=== PATIENT | female | born 1950 | race Caucasian/White ===

== ENCOUNTER → 2017-12-06 | Outpatient (CLI) | payer MEDICARE, BC | END | disposition home or self-care (01) | LOC: LABWHC1 14:38 | PROVIDERS: ATTEND Internal Medicine Endocrinology, Diabetes & Metabolism | DX: E03.8 Other specified hypothyroidism (principal) | CPT/HCPCS: 36415; 84443 ==

== ENCOUNTER → 2018-01-26 | Outpatient (CLI) | payer MEDICARE, BC ==
--- NOTE | 2018-01-26 14:18 | BD ---
EXAMINATION TYPE: Axial Bone Density DATE OF EXAM: 01/26/2018 COMPARISON: NONE CLINICAL HISTORY: 67 YR OLD FEMALE....1CD-10 CODE: Z13.820 SCREENING FOR OSTEOPOROSIS Height: 59.2 Weight: 171.6 FRAX RISK QUESTIONS: Glucocorticoids (More than 3mos): YES (Ex: prednisone, prednisolone, methylprednisolone, dexamethasone, and hydrocortisone). RISK FACTORS HISTORY OF: FRACTURES ONLY YOUNG ADULT Active: YES Diet low in dairy products/other sources of calcium: NO Postmenopausal woman: YES AT AGE 57 MEDICATIONS: Prednisone or other steroids: STEROID SHOTS INTO BACK, ASTHMA INHALERS, How Long: ON AND OFF FOR YRS Thyroid Medications: YES, SYNTHROID, FOR ABOUT 5YRS Additional Medications: VIT D AND MULTIVITAMIN WITH CALCIUM, REFLUX MEDS, MOBIC Additional History: ASTHMA AND ALLERGIES EXAM MEASUREMENTS: Bone mineral densitometry was performed using the [employer] System. Bone mineral density as measured about the Lumbar spine is: ----- L1-L4(G/cm2): 1.497 T Score Values are as follows: ----- L1: 2.6 ----- L2: 2.2 ----- L3: 2.2 ----- L4: 3.4 ----- L1-L4: 2.4 Bone mineral density FIRST BONE DENSITY......BASELINE STUDY Bone mineral density about the R hip (g/cm2): 1.026 Bone mineral density about the L hip (g/cm2): 1.009 T Score values are as follows: -----R Neck: -1.0 -----L Neck: -1.1 -----R Total: 0.1 -----L Total: 0.0 Bone mineral density BASELINE STUDY FRAX%s: THERE IS A 12.1% CHANCE OF A MAJOR OSTEOPOROTIC FX AND A 1.0% FOR HIP FX....PROBABILITY O F FX IN 10 YRS TIME IMPRESSION: Osteopenia (T Score between -2.5 and -1). There is slightly increased risk of fracture and the patient may be considered for treatment. Re-Screen 2-5 years. NOTE: T-SCORE=SD OF THE YOUNG ADULT MEAN.
--- NOTE | 2018-01-30 07:06 | MM ---
Reason for exam: screening (asymptomatic). Last mammogram was performed 4 years and 8 months ago. History: Patient is postmenopausal. Family history of breast cancer in paternal grandmother at age 65. Physical Findings: A clinical breast exam by your physician is recommended on an annual basis and results should be correlated with mammographic findings. MG 3D Screening Mammo W/Cad Bilateral CC and MLO view(s) were taken. Prior study comparison: May 30, 2013, bilateral digital screening mammo w/CAD. October 29, 2009, bilateral digital screening mammogram. There are scattered fibroglandular densities. There is no discrete abnormality. ASSESSMENT: Negative, BI-RAD 1 RECOMMENDATION: Routine screening mammogram of both breasts in 1 year.
== END | disposition home or self-care (01) ==
LOC: RADMAMWWP 10:12
PROVIDERS: ATTEND Family Medicine
DX: Z12.31 Encounter for screening mammogram for malignant neoplasm of breast (principal); Z13.820 Encounter for screening for osteoporosis; M85.80 Other specified disorders of bone density and structure, unspecified site
CPT/HCPCS: 77063; 77067; 77080

== ENCOUNTER → 2018-02-02 | Outpatient (CLI) | payer MEDICARE, BC | END | disposition home or self-care (01) | LOC: LABWHC1 08:55 | PROVIDERS: ATTEND Internal Medicine Endocrinology, Diabetes & Metabolism | DX: E03.8 Other specified hypothyroidism (principal) | CPT/HCPCS: 36415; 84443 ==

== ENCOUNTER → 2018-11-02 | Outpatient (CLI) | payer MEDICARE, BC ==
--- NOTE | 2018-11-03 12:00 | US ---
EXAMINATION TYPE: US carotid duplex BILAT DATE OF EXAM: 11/02/2018 COMPARISON: NONE CLINICAL HISTORY: R41.0 DISORIENTATION. Confustion. No HTN. No hx of tia or stroke. EXAM MEASUREMENTS: RIGHT: Peak Systolic Velocity (PSV) cm/sec ----- Right CCA: 74.7 ----- Right ICA: 86.4 ----- Right ECA: 81.2 ICA/CCA ratio: 1.2 RIGHT: End Diastole cm/sec ----- Right CCA: 25.8 ----- Right ICA: 35.8 ----- Right ECA: 15.3 LEFT: Peak Systolic Velocity (PSV) cm/sec ----- Left CCA: 81.2 ----- Left ICA: 78.2 ----- Left ECA: 94.1 ICA/CCA ratio: 1.0 LEFT: End Diastole cm/sec ----- Left CCA: 31.8 ----- Left ICA: 34.5 ----- Left ECA: 11.7 VERTEBRALS (direction of flow): Right Vertebral: Antegrade Left Vertebral: Antegrade Rhythm: Normal No elevated velocities, significant stenosis, plaque or wall thickening. IMPRESSION: No elevated velocities, significant stenosis, plaque or wall thickening. Criteria for Assigning % of Stenosis / Diameter reduction (Estimation based on the indirect measurements of the internal carotid artery velocities (ICA PSV). 1. Normal (no stenosis)=ICA PSV < 125 cm/s: ratio < 2.0: ICA EDV<40 cm/s. 2. Less than 50% stenosis=ICA PSV < 125 cm/s: ratio < 2.0: ICA EDV<40 cm/s. 3. 50 to 69% stenosis=ICA PSV of 125 to 230 cm/s: ration 2.0 ? 4.0: ICA EDV 40-100 cm/s. 4. Greater than 70% stenosis to near occlusion= ICA PSV > 230 cm/s: ratio > 4.0: ICA EDV > 100 cm/s. 5. Near occlusion= ICA PSV velocities may be low or undetectable: variable ratio and ICA EDV. 6. Total occlusion=unable to detect flow.
== END | disposition home or self-care (01) ==
LOC: RADUSWWP 16:35
PROVIDERS: ATTEND Family Medicine
DX: R41.0 Disorientation, unspecified (principal)
CPT/HCPCS: 93880

== ENCOUNTER → 2019-01-18 | Outpatient (CLI) | payer MEDICARE, BC ==
--- NOTE | 2019-01-18 10:28 | XR ---
EXAMINATION TYPE: XR chest 2V DATE OF EXAM: 01/18/2019 COMPARISON: 01/30/2015 HISTORY: Shortness of breath TECHNIQUE: Frontal and lateral views of the chest are obtained. FINDINGS: Scattered senescent parenchymal changes noted. Hyperinflation compatible with COPD. No evidence for infiltrate. No evidence for atelectasis. Heart size is stable. Mediastinal structures are stable and grossly unremarkable. No evidence for hilar prominence. Degenerative changes dorsal spine. IMPRESSION: 1. No evidence for acute pulmonary disease.
== END | disposition home or self-care (01) ==
LOC: RADXRMAIN 09:45
PROVIDERS: ATTEND Family Medicine
DX: R05 Cough (principal)
CPT/HCPCS: 71046

== ENCOUNTER → 2019-02-26 | Outpatient (CLI) | payer MEDICARE, BC ==
--- NOTE | 2019-02-26 09:59 | P.STRESS ---
- Stress Test Note Stress Test Results/Findings: Exam Performed: stress test Exam Date: 02/26/19 Reason for Exam: CHEST PAIN Height: 5 ft Weight: 73.936 kg Protocol: GAUDENCIO Stage: 2 Duration of Exercise: 5:00 Resting Heart Rate: 90 Resting Blood Pressure: 144/87 Maximum Achieved Heart Rate: 143 Maximum Achieved Blood Pressure: 203/78 85% PMHR: 131 100% PMHR: 154 METS: 6.6 Technologist Comment: Stress Test Results/Findings: This is a 68-year-old female with history of ischemic heart disease in the family being evaluated symptoms of chest pain, shortness of breath and palpitations. Stress data Baseline EKG showed sinus rhythm with normal MA interval, QRS duration. Blood pressure at rest was 144/87 with pulse rate of 90. Patient w alked on the Gaudencio protocol for 5 minutes achieving a maximum heart rate of 143 with a blood pressure 190/75. EKGs taken during and after exercise did not reveal any significant changes from the baseline. The patient did not experience any chest pain. Final impression #1. Negative stress test #2 patient did not express any chest pain #3. No arrhythmias are detected #4. Patient. Exercise capacity is below average.
--- NOTE | 2019-02-26 12:41 | EST ---
Stress Test Results/Findings: Exam Performed: stress test Exam Date: 02/26/19 Reason for Exam: CHEST PAIN Height: 5 ft Weight: 73.936 kg Protocol: GAUDENCIO Stage: 2 Duration of Exercise: 5:00 Resting Heart Rate: 90 Resting Blood Pressure: 144/87 Maximum Achieved Heart Rate: 143 Maximum Achieved Blood Pressure: 203/78 85% PMHR: 131 100% PMHR: 154 METS: 6.6 Technologist Comment: Stress Test Results/Findings: This is a 68-year-old female with history of ischemic heart disease in the family being evaluated symptoms of chest pain, shortness of breath and palpitations. Stress data Baseline EKG showed sinus rhythm with normal AK interval, QRS duration. Blood pressure at rest was 144/87 with pulse rate of 90. Patient walked on the Gaudencio protocol for 5 minutes achieving a maximum heart rate of 143 with a blood pressure 190/75. EKGs taken during and after exercise did not reveal any significant changes from the baseline. The patient did not experience any chest pain. Final impression #1. Negative stress test #2 patient did not express any chest pain #3. No arrhythmias are detected #4. Patient. Exercise capacity is below average. MTDD
== END | disposition home or self-care (01) ==
LOC: RADNMMAIN 08:38
PROVIDERS: ATTEND Family Medicine
DX: R07.89 Other chest pain (principal)
CPT/HCPCS: 93017

== ENCOUNTER → 2019-05-08 | Outpatient (CLI) | payer MEDICARE, BC ==
--- NOTE | 2019-05-09 08:38 | MM ---
Reason for exam: screening (asymptomatic). Last mammogram was performed 1 year and 3 months ago. History: Patient is postmenopausal. Family history of breast cancer in paternal grandmother at age 65. Physical Findings: A clinical breast exam by your physician is recommended on an annual basis and results should be correlated with mammographic findings. MG 3D Screening Mammo W/Cad Bilateral CC and MLO view(s) were taken. Prior study comparison: January 26, 2018, bilateral MG 3d screening mammo w/cad. May 30, 2013, bilateral digital screening mammo w/CAD. There are scattered fibroglandular densities. There is no discrete abnormality. No significant changes when compared with prior studies. ASSESSMENT: Negative, BI-RAD 1 RECOMMENDATION: Routine screening mammogram of both breasts in 1 year.
== END | disposition home or self-care (01) ==
LOC: RADMAMWWP 08:49
PROVIDERS: ATTEND Family Medicine
DX: Z12.31 Encounter for screening mammogram for malignant neoplasm of breast (principal)
CPT/HCPCS: 77063; 77067

== ENCOUNTER → 2019-08-19 | Outpatient (CLI) | payer MEDICARE, BC ==
--- NOTE | 2019-08-19 16:00 | XR ---
EXAMINATION TYPE: XR chest 2V DATE OF EXAM: 08/19/2019 COMPARISON: 01/18/2019 TECHNIQUE: PA and lateral views submitted. HISTORY: Shortness of breath and cough FINDINGS: No pneumothorax or pleural effusion. Heart size normal.. Patchy infiltrate right upper lobe. Patchy infiltrate left lower lobe. Curvature the spine with degenerative change. Arthropathy of the shoulder s. IMPRESSION: 1. Bilateral patchy infiltrate correlate for pneumonia..
[2019-08-19 16:18] LABS: Basophils % (A) 0 %; Eosinophils % (A) 0 %; HCT 37.2 % (34.0-46.0); HGB 12.4 gm/dL (11.4-16.0); Lymphocytes # (A) 1.1 k/uL (1.0-4.8); Lymphocytes % (A) 11 %; MCH 31.8 pg (25.0-35.0); MCHC 33.2 g/dL (31.0-37.0); MCV 95.6 fL (80.0-100.0); Mean Platelet Volume 6.8; Monocytes # (A) 0.2 k/uL (0-1.0); Monocytes % (A) 2 %; Neutrophils # (A) 8.6 k/uL (1.3-7.7); Neutrophils % (A) 86 %; Platelet Count 281 k/uL (150-450); RBC 3.89 m/uL (3.80-5.40); RDW 12.4 % (11.5-15.5); WBC 10.1 k/uL (3.8-10.6)
[2019-08-19 16:40] LABS: Albumin 4.3 g/dL (3.5-5.0); C Reactive Protein 55.2 mg/L (<10.0); Potassium 3.9 mmol/L (3.5-5.1); Total Bilirubin 0.4 mg/dL (0.2-1.3); Total Protein 7.3 g/dL (6.3-8.2)
[2019-08-19 20:30] LABS: Erythrocyte Sedimentation Rate 56 mm/hr (0-20)
[2019-08-20 00:42] LABS: Immunoglobulin E 71.7 IU/mL (0.00-114.00)
== END ==
LOC: RADXRMAIN 15:08
PROVIDERS: ATTEND Allergy & Immunology
DX: R91.8 Other nonspecific abnormal finding of lung field (principal); J45.41 Moderate persistent asthma with (acute) exacerbation
CPT/HCPCS: 71046; 80053; 82784; 82785; 85025; 85652; 86140

== ENCOUNTER → 2019-10-02 | Outpatient (CLI) | payer MEDICARE, BC ==
--- NOTE | 2019-10-02 10:30 | XR ---
EXAMINATION TYPE: XR chest 2V DATE OF EXAM: 10/02/2019 COMPARISON: 10/02/2019 TECHNIQUE: PA and lateral views submitted. HISTORY: Cough FINDINGS: The lungs are clear and there is no pneumothorax, pleural effusion, or focal pneumonia. Hypertrophi c and degenerative change of the spine. Hyperinflation suggests COPD. Surgical clips in the right upp er quadrant. Linear changes involving both upper lobes. No overt failure. IMPRESSION: 1. Linear changes most typical of atelectasis which is favored over pneumonia correlate clinically..
== END | disposition home or self-care (01) ==
LOC: RADXRMAIN 10:13
PROVIDERS: ATTEND Allergy & Immunology
DX: J18.9 Pneumonia, unspecified organism (principal)
CPT/HCPCS: 71046

== ENCOUNTER → 2019-10-03 | Outpatient (CLI) | payer MEDICARE, BC ==
[2019-10-03 12:29] LABS: Appearance,Urine Clear (Clear); Bilirubin,Urine Negative (Negative); Blood,Urine Negative (Negative); Color,Urine Yellow; Glucose,Urine (UA) Negative (Negative); Ketones,Urine Negative (Negative); Leukocyte Esterase,Urine Negative (Negative); Nitrite,Urine Negative (Negative); PH, Urine 5.5 (5.0-8.0); Protein,Urine Negative (Negative); Specific Gravity,Urine 1.017 (1.001-1.035); Urobilinogen,Urine <2.0 mg/dL (<2.0)
[2019-10-03 12:43] LABS: Basophils % (A) 0 %; Eosinophils # (A) 0.1 k/uL (0-0.7); Eosinophils % (A) 2 %; HCT 36.9 % (34.0-46.0); HGB 12.1 gm/dL (11.4-16.0); Lymphocytes # (A) 2.1 k/uL (1.0-4.8); Lymphocytes % (A) 24 %; MCH 31.7 pg (25.0-35.0); MCHC 32.9 g/dL (31.0-37.0); MCV 96.2 fL (80.0-100.0); Mean Platelet Volume 6.9; Monocytes # (A) 0.3 k/uL (0-1.0); Monocytes % (A) 4 %; Neutrophils # (A) 6.1 k/uL (1.3-7.7); Neutrophils % (A) 69 %; Platelet Count 360 k/uL (150-450); RBC 3.83 m/uL (3.80-5.40); RDW 13.3 % (11.5-15.5); WBC 8.8 k/uL (3.8-10.6)
[2019-10-03 13:54] LABS: Erythrocyte Sedimentation Rate 53 mm/hr (0-20)
[2019-10-03 18:52] LABS: Immunoglobulin E 41.2 IU/mL (0.00-114.00)
[2019-10-04 10:20] LABS: Immunoglobulin M 99.1 mg/dL (40.0-280.0)
[2019-10-04 13:15] LABS: C-ANCA <1:20 Titer (<1:20)
== END | disposition home or self-care (01) ==
LOC: LABWHC1 11:41
PROVIDERS: ATTEND Allergy & Immunology
DX: J18.1 Lobar pneumonia, unspecified organism (principal); J45.40 Moderate persistent asthma, uncomplicated; R53.82 Chronic fatigue, unspecified
CPT/HCPCS: 36415; 81003; 82784; 82785; 85025; 85652; 86140; 86255

== ENCOUNTER → 2019-10-07 | Outpatient (CLI) | payer MEDICARE, BC ==
--- NOTE | 2019-10-07 08:43 | CT ---
EXAMINATION TYPE: CT chest wo con DATE OF EXAM: 10/07/2019 COMPARISON: None HISTORY: Pneumonia CT DLP: [address] of the chest was performed with lung and mediastinal window settings submitted. The la ck of contrast limits evaluation of the vascular, mediastinal and parenchymal structures including th e upper abdomen. LUNGS: The lungs are clear and free of infiltrate. Linear parenchymal scarring or atelectasis is seen at the lung bases as well as the right middle lobe. No pulmonary nodule or mass is detected. No ple ural effusion. No CT evidence of interstitial lung disease. MEDIASTINUM/BRITTANY: Thoracic aorta is of normal caliber with limited evaluation given lack of contrast . The heart is not enlarged. No evidence for mediastinal mass. No lymph nodes greater than 1cm. UPPER ABDOMEN: No significant abnormality is seen. Post cystectomy clips identified. OTHER: No significant other abnormality. IMPRESSION: 1. No evidence for pneumonia or airspace consolidation. Areas of linear parenchymal scar or atelecta sis right upper lobe and lower lobes.
== END | disposition home or self-care (01) ==
LOC: RADCTMAIN 07:36
PROVIDERS: ATTEND Allergy & Immunology
DX: J47.9 Bronchiectasis, uncomplicated (principal); J18.9 Pneumonia, unspecified organism
CPT/HCPCS: 71250

== ENCOUNTER → 2019-10-12 | Outpatient (CLI) | payer MEDICARE, BC ==
--- NOTE | 2019-10-12 17:56 | MR ---
EXAMINATION TYPE: MR knee LT wo con DATE OF EXAM: 10/12/2019 COMPARISON: 01/16/2015 HISTORY: Rt knee pain x 6 mos, hx meniscus repair Multiplanar multiecho imaging of the left knee was performed with no contrast. The anterior and posterior cruciate ligaments appear intact. There is a moderate size knee joint effu emanuel. There is 4 x 1.5 cm popliteal cyst. There is increased signal in the anterior aspect of the med ial tibial condyle consistent with bone bruise that measures 1.5 cm. The patella is intact. There is defect in the anterior horn lateral meniscus on the superior surface that measures 5 mm. This extends through to the inferior surface and a full-thickness vertical tear. There is some degenerative thinn ing of the posterior horn of the medial meniscus. There is patchy increased signal in the medial femo ral condyle consistent with edema and bone bruise. There is minimal subchondral cystic change in the medial femoral condyle. The collateral ligaments are intact. IMPRESSION: Moderate joint effusion. Unchanged. Popliteal cyst unchanged. Full-thickness vertical tear anterior h orn of the lateral meniscus is a change compared to old exam. Deformity of the posterior horn medial meniscus consistent with previous surgery and partial resectio n. There is edema in the medial femoral and tibial condyles significantly increased compared to last exa m and consistent with bone bruise and degenerative cyst formation.
== END ==
LOC: RADMRIMAIN 14:31
PROVIDERS: ATTEND Orthopaedic Surgery
DX: S83.282A Other tear of lateral meniscus, current injury, left knee, initial encounter (principal); M71.22 Synovial cyst of popliteal space [Baker], left knee; M21.862 Other specified acquired deformities of left lower leg

== ENCOUNTER → 2019-10-30 | Outpatient (CLI) | payer MEDICARE, BC | END | disposition home or self-care (01) | LOC: LABPAT 15:18 | PROVIDERS: ATTEND Orthopaedic Surgery | DX: Z01.812 Encounter for preprocedural laboratory examination (principal) | CPT/HCPCS: 87070 ==

== ENCOUNTER → 2020-01-20 | Outpatient (CLI) | payer MEDICARE, BC | END | disposition home or self-care (01) | LOC: LABWHC1 13:36 | PROVIDERS: ATTEND Surgery Plastic and Reconstructive Surgery | DX: Z11.59 Encounter for screening for other viral diseases (principal) ==

== ENCOUNTER → 2020-01-23 | Day surgery (SDC) | payer MEDICARE, BC ==
[2020-01-22 09:36] VITALS: BMI 35.2
--- NOTE | 2020-01-22 19:49 | P.GSHP ---
History of Present Illness H&P Date: 01/23/20 CHIEF COMPLAINT: GERD and colon screen HISTORY OF PRESENT ILLNESS: The patient is a 69-year-old female who presents with gastroesophageal reflux disease and need for colon screen. Upper and lower endoscopy were offered for further evaluation and management. PAST MEDICAL HISTORY: Please see list. PAST SURGICAL HISTORY: Please see list. MEDICATIONS: Please see list. ALLERGIES: Please see list. SOCIAL HISTORY: No illicit drug use FAMILY HISTORY: No reports of Crohn disease or ulcerative colitis. REVIEW OF ORGAN SYSTEMS: CONSTITUTIONAL: No reports of fevers or chills. GI: Denies any blood in stools or constipation. PHYSICAL EXAM: VITAL SIGNS: Stable GENERAL: Well-developed pleasant in no acute distress. HEENT: No scleral icterus. Extraocular movements grossly intact. Moist buccal mucosa. NECK: Supple without lymphadenopathy. CHEST: Unlabored respirations. Equal bilateral excursions. CARDIOVASCULAR: Regular rate and rhythm. Distal 2+ pulses. ABDOMEN: Soft, nondistended. MUSCULOSKELETAL: No clubbing, cyanosis, or edema. ASSESSMENT: 1. Gastroesophageal reflux disease 2. Colon screen. PLAN: 1. Recommend proceeding with an upper and lower endoscopy Past Medical History Past Medical History: Asthma, GERD/Reflux, Thyroid Disorder Additional Past Medical History / Comment(s): varicose veins, History of Any Multi-Drug Resistant Organisms: None Reported Past Surgical History: Cholecystectomy, Orthopedic Surgery, Tubal Ligation Additional Past Surgical History / Comment(s): THYROIDECTOMY, SHERINE CARPAL TUNNEL, RT foot sx with screw Past Anesthesia/Blood Transfusion Reactions: Postoperative Nausea & Vomiting (PONV) Smoking Status: Former smoker - Past Family History Father Family Medical History: Cancer Additional Family Medical History / Comment(s): BONE Sister(s) Family Medical History: Cancer Medications and Allergies Home Medications Medication Instructions Recorded Confirmed Type Cholecalciferol [Vitamin D3] 1,200 unit PO DAILY 03/31/15 01/22/20 History traMADol HCl [Ultram] 50 mg PO Q6H PRN 03/31/15 01/22/20 History Ascorbic Acid [Vitamin C] 1,000 mg PO DAILY 01/22/20 01/22/20 History Azelastine HCl [Astepro] 1 spray NASAL BID 01/22/20 01/22/20 History Beclomethasone Dip 80 Mcg/Puff 1 puff INHALATION BID 01/22/20 01/22/20 History [Qvar 80 mcg] FLUoxetine HCL [PROzac] 20 mg PO DAILY 01/22/20 01/22/20 History Levothyroxine Sodium 125 mcg PO SUMOTUWETHSA 01/22/20 01/22/20 History Methocarbamol [Robaxin] 1,000 mg PO HS PRN 01/22/20 01/22/20 History Methocarbamol [Robaxin] 500 mg PO QAM PRN 01/22/20 01/22/20 History Mtc Oil 1 applic PO DAILY 01/22/20 History Multivitamin [Multivitamins Adult 1 each PO DAILY 01/22/20 01/22/20 History Gummies] Pantoprazole [Protonix] 40 mg PO DAILY 01/22/20 01/22/20 History Allergies Allergy/AdvReac Type Severity Reaction Status Date / Time morphine AdvReac Mild flushed Verified 01/22/20 09:27
[~2020-01-23] MED LIST: LACTATED RINGERS 1,000 ML IV SCH; LIDOCAINE 1% INJ 10MG/ML (20 ML MDV) ONE; PROPOFOL 10 MG/ML 20 ML VIAL IV ONE
[2020-01-23 09:06] VITALS: TEMP 97.5
--- NOTE | 2020-01-23 09:47 | P.HPADDEND ---
H&P Addendum H&P Addendum Date: 01/23/20 Patient presents with history of dysphagia. We'll proceed with upper endoscopy. Patient has history of polyps and will proceed with colon screening.
--- NOTE | 2020-01-23 10:02 | P.PCN ---
Date of Procedure: 01/23/20 Description of Procedure: PREOPERATIVE DIAGNOSIS: Gastroesophageal reflux disease. Morbid obesity. Dysphagia POSTOPERATIVE DIAGNOSIS: Dysphagia Morbid obesity. Gastritis. Gastroesophageal reflux disease. OPERATION: Esophagogastroduodenoscopy with biopsies along antrum. SURGEON: Rhianna Lee MD ANESTHESIA: MAC. INDICATIONS: The patient is a 69-year-old female who presents with a history of reflux disease and dysphagia. Benefits and risks of the procedure were described. Informed consent was obtained. DESCRIPTION: The patient was brought into the endoscopy suite and laid in the left lateral decubitus position. An Olympus gastroscope was passed along the posterior oropharynx down to the distal esophagus where the squamocolumnar junction was encountered at 35 cm from the incisors. The stomach was entered and no bile reflux was found. Additional findings are listed below. Biopsies with cold forceps were obtained of the antrum. The first through third portion of the duodenum was examined and unremarkable. Retroflexion of the scope confirmed Hill grade 2 lower esophageal valve. The squamocolumnar junction demonstrated LA grade A erosive esophagitis. The stomach was desufflated. The patient tolerated the procedure well. FINDINGS: Squamocolumnar junction 35 cm from the incisors. Diaphragmatic hiatus at 35 cm. Hill grade 2 lower esophageal valve. LA grade A erosive esophagitis. No active duodenitis. Chronic gastritis RECOMMENDATIONS: Upper endoscopy as needed. Recommend manometry
[2020-01-23 10:26] VITALS: RESP 16
--- NOTE | 2020-01-23 10:30 | P.PCN ---
Date of Procedure: 01/23/20 Description of Procedure: PREOPERATIVE DIAGNOSIS: History of colon polyps POSTOPERATIVE DIAGNOSIS: History of colon polyps OPERATION: Colonoscopy to the hepatic flexure SURGEON: Rhianna Lee MD. ANESTHESIA: MAC. INDICATIONS: The patient is a 69-year-old female who presents with history of colon polyps. Her last colonoscopy was more than 5 years ago. Benefits and risks were described and informed consent was obtained. DESCRIPTION OF PROCEDURE: The patient had undergone Suprep. She had been brought into the operating room and laid in the left lateral decubitus position. After adequate intravenous sedation, the rectum was examined with 2% lidocaine jelly. No external hemorrhoids were encountered. The rectal tone was loose. No lesions were palpated in the rectal vault. An Olympus colonoscope was advanced along the rectum to a very tortuous sigmoid colon including redundant splenic flexure. Despite multiple maneuvers, the sigmoid colon had severe tortuosity preventing further advancement of scope beyond the hepatic flexure. Cecal volvulus cannot be excluded. No evidence of polyps were identified The transverse colon including descending colon and sigmoid colon. As the patient posed high risk for perforation with persistence of the procedure, the procedure was discontinued. The colon was desufflated. The patient had tolerated the procedure well. Withdrawal time was over 6 minutes. FINDINGS: [place] preparation quality scale 1 (1-5) Tortuous sigmoid colon with stricture preventing further advancement of the scope beyond hepatic flexure No external prolapsed hemorrhoids. No arteriovenous malformations. No adenomatous polyps along transverse colon, descending colon, sigmoid colon No focal colitis. RECOMMENDATIONS: Completion of colonoscopy evaluation with barium enema for evaluation of cecal volvulus. Plan - Discharge Summary Discharge Rx Participant: No New Discharge Prescriptions: Continue traMADol HCl [Ultram] 50 mg PO Q6H PRN PRN Reason: Pain Cholecalciferol [Vitamin D3] 1,200 unit PO DAILY Azelastine HCl [Astepro] 1 spray NASAL BID FLUoxetine HCL [PROzac] 20 mg PO DAILY Pantoprazole [Protonix] 40 mg PO DAILY Mtc Oil 1 applic PO DAILY Methocarbamol [Robaxin] 500 mg PO QAM PRN PRN Reason: Muscle Pain Methocarbamol [Robaxin] 1,000 mg PO HS PRN PRN Reason: Muscle Pain Levothyroxine Sodium 125 mcg PO SUMOTUWETHSA Beclomethasone Dip 80 Mcg/Puff [Qvar 80 mcg] 1 puff INHALATION BID Ascorbic Acid [Vitamin C] 1,000 mg PO DAILY Multivitamin [Multivitamins Adult Gummies] 1 each PO DAILY Discharge Medication List Cholecalciferol [Vitamin D3] 1,200 unit PO DAILY 03/31/15 [History] traMADol HCl [Ultram] 50 mg PO Q6H PRN 03/31/15 [History] Ascorbic Acid [Vitamin C] 1,000 mg PO DAILY 01/22/20 [History] Azelastine HCl [Astepro] 1 spray NASAL BID 01/22/20 [History] Beclomethasone Dip 80 Mcg/Puff [Qvar 80 mcg] 1 puff INHALATION BID 01/22/20 [History] FLUoxetine HCL [PROzac] 20 mg PO DAILY 01/22/20 [History] Levothyroxine Sodium 125 mcg PO SUMOTUWETHSA 01/22/20 [History] Methocarbamol [Robaxin] 1,000 mg PO HS PRN 01/22/20 [History] Methocarbamol [Robaxin] 500 mg PO QAM PRN 01/22/20 [History] Mtc Oil 1 applic PO DAILY 01/22/20 [History] Multivitamin [Multivitamins Adult Gummies] 1 each PO DAILY 01/22/20 [History] Pantoprazole [Protonix] 40 mg PO DAILY 01/22/20 [History] Follow up Appointment(s)/Referral(s): Rhainna Lee MD [STAFF PHYSICIAN] - 02/11/20 Patient Instructions/Handouts: Gastritis (DC), Barium Enema (DC), *Surgery [facility] - (Anesthesia) Endoscopy Discharge Instructions Activity/Diet/Wound Care/Special Instructions: Will need barium enema for complete colon study Discharge Disposition: HOME SELF-CARE
[2020-01-23 11:40] VITALS: BP 126/80; PULSE 71
--- NOTE | 2020-01-23 14:45 | FL ---
EXAMINATION TYPE: FL barium enema DATE OF EXAM: 01/23/2020 COMPARISON: None HISTORY: Incomplete colonoscopy, concern for cecal volvulus TECHNIQUE: Single contrast technique was utilized due to degree of air present on the finished metal repairer image. Co ntrast is refluxed through the colon to the cecum. FINDINGS: The appendix is identified. Contrast refluxed through the colon. Colon fills without diffic ulty. The cecum fills without difficulty. No suspicious torsion is evident. The appendix is identifie d. There was delayed filling the appendix and multiple maneuvers to attempt to reflux into the termin al ileum. Spontaneous fill the appendix was observed and overhead radiographs were then obtained. No suspicious filling defects are evident. No area of circumferential narrowing is evident. There is some redundancy within the sigmoid colon. IMPRESSION: 1. Normal single contrast barium enema. 2. No suspicious changes for mobile cecum or cecal volvulus. Appendix is identified during the exam.
== END | disposition home or self-care (01) ==
LOC: ORWHC2ENDO 08:36
PROVIDERS: ATTEND Surgery Plastic and Reconstructive Surgery
DX: Z12.11 Encounter for screening for malignant neoplasm of colon (principal); Q43.8 Other specified congenital malformations of intestine; Z86.010 Personal history of colon polyps; K29.50 Unspecified chronic gastritis without bleeding; K21.0 Gastro-esophageal reflux disease with esophagitis; K22.10 Ulcer of esophagus without bleeding; E66.01 Morbid (severe) obesity due to excess calories; J45.909 Unspecified asthma, uncomplicated; I83.90 Asymptomatic varicose veins of unspecified lower extremity; E89.0 Postprocedural hypothyroidism; Z87.891 Personal history of nicotine dependence; Z79.890 Hormone replacement therapy; Z79.899 Other long term (current) drug therapy; Z98.890 Other specified postprocedural states; Z90.49 Acquired absence of other specified parts of digestive tract; Z98.51 Tubal ligation status; Z80.8 Family history of malignant neoplasm of other organs or systems; Z88.5 Allergy status to narcotic agent; Z68.34 Body mass index [BMI] 34.0-34.9, adult
CPT/HCPCS: 88305; 74270; 43239; J2001; J2704; G0105; 45378

== ENCOUNTER 2020-04-13 10:50 | Day surgery (SDC) | payer MEDICARE, BC ==
[2020-04-06 13:56] VITALS: BMI 35.2
--- NOTE | 2020-04-11 21:53 | HP ---
HISTORY AND PHYSICAL DATE OF SURGERY: 04/13/2020 Aleshia Dunlap is a 69-year-old patient seen with progressive left knee pain. We discussed options for treatment. She elected to proceed with left total knee arthroplasty. Consent was obtained. Medical clearance was provided by Dr. Prieto. PAST MEDICAL HISTORY: Hypothyroidism, osteoarthritis. PAST SURGICAL HISTORY: Carpal tunnel release. DAILY MEDICATIONS: Tramadol, Meloxicam, Synthroid. ALLERGIES: None. SOCIAL HISTORY: She denies current tobacco use. PHYSICAL EXAMINATION: Evaluation of the left knee: Range of motion 0-120. There is a mild effusion present. She has tenderness along the medial and lateral joint lines. Crepitus along the medial patellofemoral compartments with range of motion. There is pain with patellofemoral compression. Ligaments are stable. Hip rotation is without pain. Distal neurovascular exam is intact. Left knee radiographs reveal severe osteoarthritic changes. IMPRESSION: 1. Left knee osteoarthritis. 2. Hypothyroidism. PLAN: Left total knee arthroplasty. MMODL / IJN: [id number] /
[~2020-04-13 10:50] MED LIST changes: +ACETAMINOPHEN TAB 500 MG TAB PO ONE; -LACTATED RINGERS 1,000 ML IV SCH; +LIDOCAINE 1% (10MG/ML) FOR IV START INTRADERMA PRN; -LIDOCAINE 1% INJ 10MG/ML (20 ML MDV) ONE; +MELOXICAM 7.5 MG TAB PO ONE; +ONDANSETRON 4 MG/2 ML VIAL IVP ONE; -PROPOFOL 10 MG/ML 20 ML VIAL IV ONE; +ROPIVACAINE 246.25 MG, EPINEPHrine 0.5 MG, KETOROLAC 30 MG, cloNIDine HCL/PF 80 MCG, WA... MISCELLANE ONE; +TRANEXAMIC ACID 1,000 MG in SODIUM CHLORIDE 0.9% 100 ML IVPB ONE; +fentaNYL (PF) 50 MCG/ML 2 ML AMP IV PRN
[2020-04-13] MEDS ORDERED: ACETAMINOPHEN TAB 500 MG TAB ONE (11:40)
[2020-04-13] MEDS ORDERED: ONDANSETRON 4 MG/2 ML VIAL ONE (11:40)
[2020-04-13] MEDS: LACTATED RINGERS 1,000 ML IV SCH ×3 (12:01→23:57)
[2020-04-13] MEDS ORDERED: MIDAZOLAM 2 MG/2 ML VIAL IV ONE (12:13)
[2020-04-13] MEDS ORDERED: fentaNYL (PF) 50 MCG/ML 2 ML AMP IV ONE (12:13)
[2020-04-13] MEDS ORDERED: PROPOFOL 10 MG/ML 20 ML VIAL IV ONE (12:38)
[2020-04-13] MEDS ORDERED: MIDAZOLAM 2 MG/2 ML VIAL IVP ONE (12:38)
[2020-04-13] MEDS ORDERED: SODIUM CHLORIDE 0.9% 100 ML BAG ONE (12:38)
[2020-04-13] MEDS ORDERED: TRANEXAMIC ACID 1,000 MG/10 ML VIAL ONE (12:38)
[2020-04-13] MEDS ORDERED: PHENYLEPHRINE-0.9% NACL SYG 1 MG/10 ML SYRINGE ONE (12:38)
[2020-04-13] MEDS ORDERED: MIDAZOLAM 2 MG/2 ML VIAL ONE (12:38)
[2020-04-13] MEDS ORDERED: ePHEDrine SULFATE/0.9% NACL/PF 50 MG/5 ML SYRINGE IV ONE (12:38)
[2020-04-13] MEDS ORDERED: fentaNYL (PF) 50 MCG/ML 2 ML AMP ONE (12:38)
[2020-04-13] MEDS ORDERED: fentaNYL (PF) 50 MCG/ML 2 ML AMP IVP ONE (12:38)
[2020-04-13] MEDS ORDERED: ROPIVACAINE 0.2%-NS ON-Q PUMP 1,090 MG, EMPTY PAIN BALL 1 EACH MISCELLANE PRN (12:53)
[2020-04-13] MEDS ORDERED: ceFAZolin 3,000 MG in SODIUM CHLORIDE 0.9% IRRIGATIO 3,000 ML IRRIGATION ONE (13:23)
[2020-04-13] MEDS ORDERED: LACTATED RINGERS 1,000 ML IV ONE ×3 (13:28→15:23)
[2020-04-13] MEDS ORDERED: ONDANSETRON 4 MG/2 ML VIAL IVP PRN (14:28)
[2020-04-13] MEDS ORDERED: HYDROcodone/APAP 5-325MG 1 EACH TAB PO PRN (14:28)
[2020-04-13] MEDS ORDERED: HYDROmorphone 0.5 MG/0.5 ML SYRINGE IVP PRN ×3 (14:28)
[2020-04-13] MEDS ORDERED: NALOXONE 0.4 MG/ML 1 ML VIAL IV PRN (14:28)
--- NOTE | 2020-04-13 14:28 | P.OP ---
Date of Procedure: 04/13/20 Preoperative Diagnosis: Left knee osteoarthritis Postoperative Diagnosis: Left knee osteoarthritis Procedure(s) Performed: Left total knee arthroplasty Implants: 1. Depuy attune size 5 left narrow cruciate retaining cemented femur 2. Depuy attune size 4 fixed bearing cemented tibial baseplate 3. Depuy attune size 5 fixed bearing cruciate retaining 7 mm polyethylene tibial insert 4. Depuy attune 35 mm all polyethylene cemented patella Anesthesia: regional (Adductor canal catheter), local, spinal Surgeon: Umesh Zarate Funeral Driver #1: Tomas Cho Estimated Blood Loss (ml): 40 Pathology: none sent (Bone) Condition: stable Disposition: PACU Indications for Procedure: 69-year-old patient seen with symptomatic left knee osteoarthritis. After having treatment options discussed, she elected to proceed with total knee arthroplasty. Operative Findings: See description of procedure Description of Procedure: Patient was taken to the operative suite after having an adductor canal catheter placed by the department of anesthesia. Patient underwent a spinal anesthetic by the department of anesthesia. Patient was given preoperative IV intake antibiotics and TXA. A well-padded tourniquet was placed about the left lower extremity. The lower extremity was then prepped and draped in the normal sterile orthopedic fashion. The extremity was elevated, a tourniquet was insufflated to 300. A standard anterior incision was made sharply through skin. Dissection was taken down through the subcutaneous soft tissues down to the extensor mechanism. A medial arthrotomy was performed, patella was everted and knee was flexed. There was advanced osteoarthritis noted. I introduced my distal intramedullary femoral drill. I then introduced the distal femoral cu tting jig. Farhad BOURGEOIS secured the cutting jig with 2 pins. I held retractors in position while Farhad BOURGEOIS performed the distal femoral resection through the guide area we now removed her distal femoral cutting guide. We now placed our 4-in-1 femoral cutting block and positioned and it was secured with 2 pins by Farhad BOURGEOIS while I held the block in position. The distal femoral finishing was now completed. A proximal tibial cutting guide was positioned. I held the guide in the appropriate position with both hands well Farhad BOURGEOIS inserted stabilizing pins into the guide. Proximal tibial cut was made. We now placed a trial femoral component into position, along with an appropriate size tibial tray and insert. We now took the knee through range of motion and had full extension good flexion and good overall soft tissue balance noted. The patella was everted and stabilized with 2 towel clips held by Farhad BOURGEOIS while I performed a flush with patellar quad tendon utilizing a fresh sawblade. We templated the patella, appropriate drill holes were made. An appropriate trial patella was positioned, knee was taken through full range of motion with the patella tracking very nicely. The trial patella was removed. Drill holes were made through the femoral component. All trial components were removed after marking off the appropriate rotation of the tibia. Retractors were now positioned along the proximal tibia. An appropriate keel punch was made with the appropriate size tibial guide by myself on Farhad BOURGEOIS assisted by holding retractors. At this point appropriate size implants were chosen and opened. The joint was irrigated copiously with pulse lavage mechanical irrigation. The posterior capsule was infiltrated with local analgesic. The wound was irrigated with pulse lavage mechanical irrigation. We mixed antibiotic methylmethacrylate. We placed the knee into flexion. We placed multiple retractors assisted by Farhad BOURGEOIS to expose the proximal tibia. Once the methyl methacrylate was ready, the tibial component was cemented into place removing any excess methylmethacrylate form by both myself and Farhad BOURGEOIS. The femoral component was cemented into place removing the removing any excess methylmethacrylate performed by both myself and Farhad BOURGEOIS. We then inserted the appropriate size polyethylene tibial insert. We made sure that it was locked into position. We took the knee into full extension, and then back in a flexion making sure we had removed any excess methylmethacrylate. The patellar component was then cemented down and secured with clamp. Excess methylmethacrylate removed. We kept the knee in full extension, patellar clamp in position until methylmethacrylate had hardened. Once it had hardened the patellar clamp was removed. The knee was taken through full range of motion. The patella tracked nicely. There was good soft tissue balancing. The tourniquet was now released. Additional hemostasis was achieved via electrocautery. A second gram of TXA was given. The wound again was irrigated with pulse lavage mechanical irrigation. The superficial soft tissues were infiltrated local analgesic. The extensor mechanism was repaired with Vicryl. We checked the repair with range of motion and it was stable. The subcutaneous soft tissues were repaired with Vicryl in layers. The skin was approximated with pernio/Dermabond. Sterile dressings were applied followed by loose web roll and Robert bandage. The patient was transferred to a bed, and taken to recovery in stable and satisfactory condition. Farhad BOURGEOIS assisted with this complex procedure.
--- NOTE | 2020-04-13 15:21 | XR ---
EXAMINATION TYPE: XR knee limited LT DATE OF EXAM: 04/13/2020 COMPARISON: NONE HISTORY: 69-year-old female with evaluation for postoperative abnormality and alignment TECHNIQUE: 2 views FINDINGS: Images show placement of left total knee arthroplasty. Both distal femoral and proximal tibial compon ents of the prosthesis are well seated without periprosthetic fracture. Alignment grossly anatomic. A nterior soft tissue swelling with scattered soft tissue air as well as intra-articular air compatible with recent operation. IMPRESSION: Incompetent postoperative appearance left total knee arthroplasty.
[2020-04-13] MEDS: ENOXAPARIN 30 MG/0.3 ML SYRINGE SQ SCH (20:19)
[2020-04-13] MEDS ORDERED: SENNOSIDES-DOCUSATE SODIUM 1 EACH TAB PO SCH (21:00)
[2020-04-13] MEDS ORDERED: PANTOPRAZOLE 40 MG TABLET PO PRN (22:39)
[2020-04-13] MEDS ORDERED: methocarbamoL 500 MG TAB PO PRN (22:39)
[2020-04-13] MEDS ORDERED: METOPROLOL SUCCINATE (ER) 25 MG TAB.ER.24H PO SCH (22:45)
--- NOTE | 2020-04-13 22:45 | P.CONS ---
History of Present Illness - Reason for Consult Consult date: 04/13/20 Medical management Requesting physician: Umesh Zarate - Chief Complaint Left knee surgery - History of Present Illness Consultation: This is a pleasant [address] DE LEON. Chronic stable medical conditions include intermittent asthma, GERD, hypertension, osteoarthritis, hypothyroid, varicose veins and urinary incontinence. Patient has undergone left total knee arthroplasty. Postprocedure pain is controlled. No nausea vomiting. No chest pain or short of breath. Laying in bed. Comfortable. Watching television. Review of systems: GEN.: None EYES: None HEENT: None NECK: None RESPIRATORY: None CARDIOVASCULAR: None GASTROINTESTINAL: Reflux GENITOURINARY: Urinary incontinence MUSCULOSKELETAL: Joint pains LYMPHATICS: None HEMATOLOGICAL: None PSYCHIATRY: None NEUROLOGICAL: None Past medical history to include: Asthma, GERD, hypertension, prostatitis, hypothyroid, varicose veins, urinary incontinence Social history: Patient started smoking age of 17 quit in 1991. Smoked 2 packs a day. No alcohol. Physical examination: VITAL SIGNS: 98.1, 81, 16, 104/64, 93%] GENERAL: BMI 36.3, laying in bed, awake. EYES: Pupils equal. Conjunctiva normal. HEENT: External appearance of nose and ears normal, oral cavity grossly normal. NECK: JVD not raised; masses not palpable. HEART: First and second heart sounds are normal; no edema. LUNGS: Respiratory rate normal; clear to auscultation. ABDOMEN: Soft, nontender, liver spleen not palpable, no masses palpable. PSYCH: Alert and oriented x3; mood and affect normal. NEUROLOGICAL: Cranial nerves grossly intact; no facial asymmetry, power and sensation grossly intact. MUSCULAR schedule: Dressing over the left knee, evidence of OA in the hands LYMPHATICS: No lymph nodes palpable in the axilla and neck Assessment: -Left total knee arthroplasty -Intermittent asthma -GERD -Essential hypertension -Primary osteoarthritis -Hypothyroid -Chronic varicose veins -Chronic urinary incontinence Plan: Resume home medications. Getting IV fluids. Lovenox for DVT prophylaxis. Care was discussed with the patient. Questions answered. Thank you Dr. Mijares Past Medical History Past Medical History: Asthma, GERD/Reflux, Hypertension, Osteoarthritis (OA), Thyroid Disorder Additional Past Medical History / Comment(s): varicose veins, urinary frequency & incontinence-wears pad History of Any Multi-Drug Resistant Organisms: None Reported Past Surgical History: Cholecystectomy, Orthopedic Surgery, Tubal Ligation Additional Past Surgical History / Comment(s): THYROIDECTOMY, SHERINE CARPAL TUNNEL RELEASE, RIGHT FOOT SURGERY Past Anesthesia/Blood Transfusion Reactions: Postoperative Nausea & Vomiting (PONV) Past Psychological History: Anxiety Smoking Status: Former smoker Past Alcohol Use History: None Reported Additional Past Alcohol Use History / Comment(s): STARTED SMOKING AT AGE 17quit IN 1991 smoked 2 ppd Past Drug Use History: None Reported - Past Family History Father Family Medical History: Cancer Additional Family Medical History / Comment(s): BONE Sister(s) Family Medical History: Cancer Medications and Allergies Home Medications Medication Instructions Recorded Confirmed Type Cholecalciferol [Vitamin D3] 1,200 unit PO DAILY 03/31/15 04/13/20 History Azelastine HCl [Astepro] 1 spray EA NOSTRIL BID 01/22/20 04/13/20 History Beclomethasone Dip 80 Mcg/Puff 1 puff INHALATION BID 01/22/20 04/13/20 History [Qvar 80 mcg] FLUoxetine HCL [PROzac] 20 mg PO DAILY 01/22/20 04/13/20 History Multivitamin [Multivitamins Adult 1 each PO DAILY 01/22/20 04/13/20 History Gummies] Pantoprazole [Protonix] 40 mg PO DAILY PRN 01/22/20 04/13/20 History methocarbamoL [Robaxin] 1,000 mg PO HS PRN 01/22/20 04/13/20 History Levothyroxine Sodium [Synthroid] 137 mcg PO DAILY 04/06/20 04/13/20 History Multivitamins, Thera [Multivitamin 1 tab PO DAILY 04/06/20 04/13/20 History (formulary)] Metoprolol Succinate (ER) [Toprol 12.5 mg PO HS 04/09/20 04/13/20 History Xl] Allergies Allergy/AdvReac Type Severity Reaction Status Date / Time morphine AdvReac Mild flushed Verified 04/13/20 11:20 Physical Exam Vitals: Vital Signs Temp Pulse Pulse Resp BP Pulse Ox 04/13/20 19:20 98.1 F 79 81 16 104/64 93 L 04/13/20 16:30 85 114/75 94 L 04/13/20 16:15 94 111/69 97 04/13/20 16:00 79 133/73 97 04/13/20 15:45 81 167/80 99 04/13/20 15:30 79 121/79 96 04/13/20 15:19 79 16 110/58 94 L 04/13/20 15:15 81 134/84 94 L 04/13/20 15:04 85 16 109/53 95 04/13/20 15:00 78 116/72 93 L 04/13/20 14:49 97.3 F L 89 16 96/46 93 L 04/13/20 14:45 97.6 F 81 120/63 95 04/13/20 11:07 98.3 F 76 16 132/71 97 Intake and Output 04/13/20 04/13/20 04/13/20 06:59 14:59 22:59 Intake Total 1751 700 Output Total 40 Balance 1711 700 Intake: IV 1751 300 Intake, IV Titration 200 Amount Lactated Ringers 1,000 ml 200 @ 100 mls/hr IV .Q10H [facility] Rx#:[id number] Oral 200 Output: Estimated Blood Loss 40 Other: Weight 84.4 kg 84.4 kg
[2020-04-14] MEDS: FLUTICASONE 110 MCG INHALER INHALATION SCH ×3 (04:26→08:30)
[2020-04-14] MEDS: AZELASTINE 137MCG/SPRAY EA NOSTRIL SCH ×2 (04:27→08:22)
[2020-04-14] MEDS: LACTATED RINGERS 1,000 ML IV SCH ×2 (04:27→10:19)
--- NOTE | 2020-04-14 06:16 | P.ANPRN ---
Procedure Note - Anesthesia - Nerve Block Performed Left Adductor Canal Infusion Time Out Performed: Yes Date of Procedure: 04/14/20 Location of Patient: PreOp Indication: Acute Post-Operative Pain, Dx/Pain Location, Requested by Surgeon Sedation Type: Sedate with meaningful contact maintained Preparation: Sterile Prep Position: Supine Catheter: Indwelling Needle Types: Pajunk Needle Gauge: 21 Ultrasound used to visualize needle placement: Yes Ultrasound used to observe medication spread: Yes Injectate: 0.5% Ropivacaine (see comment for volume) (20ml) Blood Aspirated: No Pain Paresthesia on Injection Noted: No Resistance on Injection: Normal Image Stored and Saved: Yes Events: Uneventful and Well Tolerated
--- NOTE | 2020-04-14 06:19 | P.PN ---
Progress Note - Text Progress Note Date: 04/14/20 69 year-old male status post left total knee arthroplasty postop day #1. Patient had continuous adductor canal catheter. Patient doing well. VAS ranges from a 0-3 out of 10 in severity, catheter site looks clean dry and intact. He has been ambulating well. Overall doing well likely discharged home today.
[2020-04-14] MEDS: HYDROcodone/APAP 5-325MG 1 EACH TAB PO PRN ×2 (06:21→11:32)
[2020-04-14] MEDS ORDERED: LEVOTHYROXINE 137 MCG TAB PO SCH (06:30)
[2020-04-14 07:18] VITALS: BP 110/68; PULSE 92; RESP 18; TEMP 100.4
[2020-04-14 08:09] LABS: Basophils % (A) 0 %; Eosinophils # (A) 0.1 k/uL (0-0.7); Eosinophils % (A) 1 %; HCT 31.8 % (34.0-46.0); HGB 10.2 gm/dL (11.4-16.0); Lymphocytes # (A) 1.3 k/uL (1.0-4.8); Lymphocytes % (A) 11 %; MCH 30.3 pg (25.0-35.0); MCHC 32.1 g/dL (31.0-37.0); MCV 94.3 fL (80.0-100.0); Mean Platelet Volume 7.2; Monocytes # (A) 0.6 k/uL (0-1.0); Monocytes % (A) 5 %; Neutrophils # (A) 10.2 k/uL (1.3-7.7); Neutrophils % (A) 82 %; Platelet Count 238 k/uL (150-450); RBC 3.37 m/uL (3.80-5.40); RDW 12.9 % (11.5-15.5); WBC 12.3 k/uL (3.8-10.6)
[2020-04-14] MEDS: ENOXAPARIN 30 MG/0.3 ML SYRINGE SQ SCH (08:22)
[2020-04-14] MEDS ORDERED: MELOXICAM 7.5 MG TAB PO SCH (09:00)
[2020-04-14] MEDS ORDERED: FLUoxetine HCL 20 MG CAP PO SCH (09:00)
[2020-04-14] MEDS ORDERED: MULTIVITAMINS, THERA 1 EACH TAB PO SCH (09:00)
[2020-04-14] MEDS ORDERED: ONDANSETRON 4 MG/2 ML VIAL IVP PRN (09:43)
[2020-04-14] MEDS ORDERED: NALOXONE 0.4 MG/ML 1 ML VIAL IV PRN (09:43)
--- NOTE | 2020-04-14 11:17 | P.PN ---
Subjective Progress Note Date: 04/14/20 Principal diagnosis: status post left total knee arthroplasty patient evaluated at bedside, she is resting comfortably. She's done very well with therapy. Her pain is well-controlled. She denies any chest pain or shortness of breath. Objective - Vital Signs Vital signs: Vital Signs Temp 100.4 F H 04/14/20 07:00 Pulse 92 04/14/20 07:00 Resp 18 04/14/20 07:00 BP 110/68 04/14/20 07:00 Pulse Ox 92 L 04/14/20 07:00 Intake & Output 04/13/20 04/14/20 04/14/20 18:59 06:59 18:59 Intake Total 2050 400 Output Total 40 Balance 2010 400 Weight 84.4 kg Intake: IV 2050 Intake, IV Titration 200 Amount Lactated Ringers 1,000 ml 200 @ 100 mls/hr IV .Q10H [facility] Rx#:[id number] Oral 200 Output: Estimated Blood Loss 40 Other: # Voids 1 - Exam Left lower extremity: Incision is clean, dry, and intact. The foam dressing is in good condition. There is minimal soft tissue swelling and ecchymosis surrounding the medial and lateral aspects of the incision. Calf is soft, no tenderness with palpation. Plantar flexion, dorsiflexion, EHL, FHL are intact. Sensory exam to light touch throughout the extremity is intact, dorsal pedis pulses 2+. - Labs CBC & Chem 7: 04/14/20 07:35 Labs: Abnormal Lab Results - Last 24 Hours (Table) 04/14/20 Range/Units 07:35 WBC 12.3 H (3.8-10.6) k/uL RBC 3.37 L (3.80-5.40) m/uL Hgb 10.2 L (11.4-16.0) gm/dL Hct 31.8 L (34.0-46.0) % Neutrophils # 10.2 H (1.3-7.7) k/uL Assessment and Plan Assessment: Status post left total knee arthroplasty Plan: Pain control, oral medication and discharge GI and DVT prophylaxis, aspirin 81 mg twice a day for 1 month Wound care instructions were discussed, icing and elevating techniques discussed Home therapy and nursing after discharge Medical recommendations Plan for discharge home today Time with Patient: Less than 30
--- NOTE | 2020-04-14 11:19 | P.DS ---
Providers Date of admission: 04/13/2020 Expected date of discharge: 04/14/20 Attending physician: Umesh Zarate Consults: 04/13/20 14:28 Consult Physician Routine Consulting Provider: Nolan Padilla Consult Reason/Comments: Medical management Do you want consulting provider notified?: Yes Primary care physician: Dhaval Prieto Hospital Course: Date of admission: 04/13/2020 Date of discharge: 04/14/2020 Admission diagnosis: Status post left total knee arthroplasty Discharge diagnosis: Same Attending physician: Dr. Zarate Surgical procedures: Left total knee arthroplasty Brief history: Patient is a 69-year-old female with a history of progressive primary left knee osteoarthritis. At this point patient has failed conservative treatment measures and has opted to proceed with a elective left total knee arthroplasty. Hospital course: Details of patient's surgery can be found in operative report. Patient tolerated the procedure well and was subsequently transported to orthopedic floor. Patient's orthopeidc and medical care was provided daily. Patient had daily laboratory tests performed for evaluation of overall blood counts. Patient had daily physical therapy to include strengthening range of motion as well as education with walker ambulation. Patient was treated with Lovenox for their postoperative DVT prophylaxis during their inpatient stay. Charli webb was noted to have a relatively uneventful postoperative course. Patient reported satisfactory pain control with oral pain medications by postoperative day 0. Patient showed satisfactory progress with physical therapy. Patient moved steadily through the program and had no difficulty meeting the goals by postoperative day 1. Given patient's otherwise satisfactory course and having met physical therapy goals, plan is to discharge patient home on postoperative day 1. Discharge condition/disposition: Patient will be discharged home in stable condition. Discharge medications: Instructions are given on resumption of patient's normal daily medications per primary care recommendation, in addition patient will be prescribed Austin 5 mg/325 mg, Colace 100 mg, aspirin 81 mg. Discharge instructions: 1. Wound care and infection precautions, keep incision dry and covered while showering, no lotions, creams, moisturizers. No soaking, tubs, pools, hottubs. Do not scrub over the incision. 2. Weight-bear as tolerated with walker / cane until follow-up. 3. Ice and elevate when necessary. Do not exceed 20 minutes per hour with ice pack. 4. Utilize compression sleeve until seen at first follow up appointment. 5. Visiting nursing care. 6. Home physical therapy including home CPM. 7. Pain meds and anticoagulants per prescription. 8. Pain medication has potential to cause constipation. Increase oral fluid and fiber intake. Contact primary care provider if you have not had a bowel movement within 48 hours after discharge 9. No anti-inflammatory medication until discussed at first post operative visit, this including Motrin, Aleve, Mobic, Diclofenac. 10. Follow up in office at 2 weeks postop with Farhad Cho PA-C 11. Follow up with your primary care doctor 7-10 days after discharge. 12. Contact [facility] with any questions, . Procedures: Left total knee arthroplasty Patient Condition at Discharge: Good Plan - Discharge Summary Discharge Rx Participant: Yes New Discharge Prescriptions: New Aspirin [Adult Low Dose Aspirin EC] 81 mg PO BID #60 tablet. Docusate [Colace] 100 mg PO DAILY #30 capsule Hydrocodone/Acetaminophen [Austin 5-325] 1 - 2 each PO Q6HR PRN #56 tab PRN Reason: Pain Continue Cholecalciferol [Vitamin D3] 1,200 unit PO DAILY Azelastine HCl [Astepro] 1 spray EA NOSTRIL BID FLUoxetine HCL [PROzac] 20 mg PO DAILY Pantoprazole [Protonix] 40 mg PO DAILY PRN PRN Reason: ACID REFLUX, HEARTBURN methocarbamoL [Robaxin] 1,000 mg PO HS PRN PRN Reason: Muscle Pain Beclomethasone Dip 80 Mcg/Puff [Qvar 80 mcg] 1 puff INHALATION BID Multivitamin [Multivitamins Adult Gummies] 1 each PO DAILY Multivitamins, Thera [Multivitamin (formulary)] 1 tab PO DAILY Levothyroxine Sodium [Synthroid] 137 mcg PO DAILY Metoprolol Succinate (ER) [Toprol XL] 12.5 mg PO HS Discharge Medication List Cholecalciferol [Vitamin D3] 1,200 unit PO DAILY 03/31/15 [History] Azelastine HCl [Astepro] 1 spray EA NOSTRIL BID 01/22/20 [History] Beclomethasone Dip 80 Mcg/Puff [Qvar 80 mcg] 1 puff INHALATION BID 01/22/20 [History] FLUoxetine HCL [PROzac] 20 mg PO DAILY 01/22/20 [History] Multivitamin [Multivitamins Adult Gummies] 1 each PO DAILY 01/22/20 [History] Pantoprazole [Protonix] 40 mg PO DAILY PRN 01/22/20 [History] methocarbamoL [Robaxin] 1,000 mg PO HS PRN 01/22/20 [History] Levothyroxine Sodium [Synthroid] 137 mcg PO DAILY 04/06/20 [History] Multivitamins, Thera [Multivitamin (formulary)] 1 tab PO DAILY 04/06/20 [History] Metoprolol Succinate (ER) [Toprol XL] 12.5 mg PO HS 04/09/20 [History] Aspirin [Adult Low Dose Aspirin EC] 81 mg PO BID #60 tablet. 04/14/20 [Rx] Docusate [Colace] 100 mg PO DAILY #30 capsule 04/14/20 [Rx] Hydrocodone/Acetaminophen [Austin 5-325] 1 - 2 each PO Q6HR PRN #56 tab 04/14/20 [Rx] Follow up Appointment(s)/Referral(s): Dhaval Prieto MD [Primary Care Provider] - 1 Week Tomas Cho PAC [PHYSICIAN BORDER PATROL OFFICER] - 04/29/20 2:50 pm [facility] [NON-STAFF] - Patient Instructions/Handouts: *Surgery [facility] - On-Q Pain Pump Discharge Instructions, Knee Replacement (DC) Activity/Diet/Wound Care/Special Instructions: Orthopedic Discharge Instructions: 1. Wound care and infection precautions, keep incision dry and covered while showering, no lotions, creams, moisturizers. No soaking, pools, hot tubs. Do not scrub over incision. 2. Weight-bear as tolerated with walker / cane until follow-up. 3. Ice and elevate when necessary. Do not exceed 20 minutes per hour with ice pack. 4. Utilize compression sleeve until seen at first follow up appointment. 5. Pain meds and anticoagulants per prescription. 6. Pain medication has potential to cause constipation. Increase oral fluid and fiber intake. Contact primary care provider if you have not had a bowel movement within 48 hours after discharge. 7. No anti-inflammatory medication until discussed at first post operative visit, this including Motrin, Aleve, Mobic, Diclofenac. 8. Follow up in office at 2 weeks postop with Farhad Cho PA-C 9. Follow up with your primary care doctor 7-10 days after discharge. 10. Contact [facility] with any questions, [phone]. 11. *Please call [employer] once home to arrange delivery of Continuous Passive Motion (CPM) machine: [phone]. Discharge Disposition: HOME WITH HOME HEALTH SERVICES
[2020-04-14] MEDS: CALCIUM CARBONATE LIQUID 500 MG/5 ML CUP PO SCH ×2 (11:32→12:18)
--- NOTE | 2020-04-14 19:43 | P.PN ---
Progress Note - Text Progress Note Date: 04/14/20 - Chief Complaint Left knee surgery Consultation: This is a pleasant [address] DE LEON. Chronic stable medical conditions include intermittent asthma, GERD, hypertension, osteoarthritis, hypothyroid, varicose veins and urinary incontinence. Patient has undergone left total knee arthroplasty. Today-doing well. Tolerated diet. Has been out of bed. No chest pain or short of breath. Review of systems: Was done for constitutional, cardiovascular, GI, pulmonary. relevant finding as above Current medications reviewed in today's electronic records Physical examination: VITAL SIGNS: 100.4, 92, 18, 110/68, 92% room air GENERAL: Sitting up, feeling well EYES: Pupils equal. Conjunctiva normal. NECK: JVD not raised; masses not palpable. HEART: First and second heart sounds are normal; no edema. LUNGS: Respiratory rate normal; clear to auscultation. ABDOMEN: Soft, nontender, liver spleen not palpable, no masses palpable. PSYCH: Alert and oriented x3; mood and affect normal. MUSCULAR schedule: Dressing over the left knee, evidence of OA in the hands Assessment: -Left total knee arthroplasty -Intermittent asthma -GERD -Essential hypertension -Primary osteoarthritis -Hypothyroid -Chronic varicose veins -Chronic urinary incontinence -Acute postop blood loss anemia as expected from surgery. Plan: Patient feeling well. No urinary symptoms. No respiratory symptoms. Incision healing well per surgery. Thank you Dr. Mijares
== END 2020-04-14 13:08 | disposition home health service (06) ==
LOC: OR 10:50 → 4SSUR 14:27 → OR 04-14 13:08
PROVIDERS: ATTEND Orthopaedic Surgery
DX: M17.12 Unilateral primary osteoarthritis, left knee (principal); D62 Acute posthemorrhagic anemia; I10 Essential (primary) hypertension; J45.20 Mild intermittent asthma, uncomplicated; K21.9 Gastro-esophageal reflux disease without esophagitis; G89.29 Other chronic pain; M54.9 Dorsalgia, unspecified; I83.90 Asymptomatic varicose veins of unspecified lower extremity; F90.0 Attention-deficit hyperactivity disorder, predominantly inattentive type; E89.0 Postprocedural hypothyroidism; F41.9 Anxiety disorder, unspecified; F32.9 Major depressive disorder, single episode, unspecified; G47.00 Insomnia, unspecified; E55.9 Vitamin D deficiency, unspecified; Z79.51 Long term (current) use of inhaled steroids; Z79.890 Hormone replacement therapy; Z79.899 Other long term (current) drug therapy; Z88.5 Allergy status to narcotic agent; Z90.49 Acquired absence of other specified parts of digestive tract; Z98.51 Tubal ligation status; Z98.890 Other specified postprocedural states; Z80.8 Family history of malignant neoplasm of other organs or systems; Z80.9 Family history of malignant neoplasm, unspecified; Z87.891 Personal history of nicotine dependence
CPT/HCPCS: 97110; 97161; 64448; 76942; 85025; 88300; 73560; 27447; C1776; C1713; J2250; J0171; J0690 ×3; J2405; J3010; J1885; J1650 ×2; J2795 ×2; J2370; J2704; J0735

== ENCOUNTER → 2020-10-20 | Outpatient (CLI) | payer MEDICARE, BC | END | disposition home or self-care (01) | LOC: LABPAT 12:25 | PROVIDERS: ATTEND Orthopaedic Surgery | DX: Z01.812 Encounter for preprocedural laboratory examination (principal) | CPT/HCPCS: 87070 ==

== ENCOUNTER 2020-11-09 10:15 | Inpatient (IN) | payer BC, MEDICARE ==
[2020-11-16 14:11] VITALS: BMI 33.5
--- NOTE | 2020-11-22 12:18 | HP ---
HISTORY AND PHYSICAL DATE OF SURGERY: 11/23/2020 HISTORY OF PRESENT ILLNESS: Aleshia Dunlap is a 70-year-old patient seen with left total knee arthroplasty. Pain with instability. We discussed revision. We reviewed the procedure, risks, complications, benefits, recovery, she was agreeable. Consent was obtained. Medical clearance was provided by Dr. Prieto. PAST MEDICAL HISTORY: Hypothyroidism. PAST SURGICAL HISTORY: Left total knee arthroplasty, carpal tunnel surgery. MEDICATIONS: Synthroid, Adderall, tramadol, meloxicam. ALLERGIES: None. SOCIAL HISTORY: She denies current tobacco use. PHYSICAL EXAMINATION: Evaluation of her left knee, there is a previous well-healed anterior incision. Her range of motion is +3 to 125. She has +2 to 3 Annabel's and +1 to 2 MCL, LCL, both good endpoints. Pain with rotation of her hip. Her distal neurovascular exam is intact. RADIOGRAPHS: Of the left knee revealed a stable appearing total knee arthroplasty. IMPRESSION: 1. Painful/unstable left total knee arthroplasty. 2. Hypothyroidism. PLAN: Revision left total knee arthroplasty. MMODL / IJN: [id number] /
[2020-11-23] MEDS ORDERED: ROPIVACAINE/EPI/CLONIDINE/KET 50 ML SYRINGE MISCELLANE PRN (05:00)
[2020-11-23] MEDS ORDERED: ACETAMINOPHEN TAB 500 MG TAB PO PRN (05:00)
[2020-11-23] MEDS ORDERED: TRANEXAMIC ACID 1,000 MG in SODIUM CHLORIDE 0.9% 100 ML IVPB PRN ×4 (05:00)
[2020-11-23] MEDS ORDERED: MELOXICAM 7.5 MG TAB PO PRN (05:00)
[2020-11-23] MEDS ORDERED: ONDANSETRON 4 MG/2 ML VIAL IVP ONE (05:09)
[2020-11-23] MEDS ORDERED: LACTATED RINGERS 1,000 ML IV SCH (05:09)
[2020-11-23] MEDS ORDERED: HYDROmorphone 0.5 MG/0.5 ML SYRINGE IVP PRN (05:09)
[2020-11-23] MEDS ORDERED: DEXAMETHASONE SOD PHOSPHATE 4 MG/ML 1 ML VIAL IV ONE (05:09)
[2020-11-23] MEDS ORDERED: LIDOCAINE 1% (10MG/ML) FOR IV START INTRADERMA ONE (13:24)
[2020-11-23] MEDS ORDERED: fentaNYL (PF) 50 MCG/ML 2 ML AMP IVP ONE (13:46)
[2020-11-23] MEDS ORDERED: MIDAZOLAM 2 MG/2 ML VIAL IVP ONE (13:46)
[2020-11-23] MEDS ORDERED: NEOSTIGMINE 1 MG/ML 10 ML VIAL ONE (14:25)
[2020-11-23] MEDS ORDERED: SUCCINYLCHOLINE CHLORIDE 100 MG/5 ML SYR IV ONE (14:25)
[2020-11-23] MEDS ORDERED: MIDAZOLAM 2 MG/2 ML VIAL ONE (14:25)
[2020-11-23] MEDS ORDERED: ROCURONIUM 10 MG/ML (5 ML VIAL) IV ONE (14:25)
[2020-11-23] MEDS ORDERED: TRANEXAMIC ACID 1,000 MG/10 ML VIAL ONE (14:25)
[2020-11-23] MEDS ORDERED: ROPIVACAINE 5 MG/ML 30 ML VIAL ONE (14:25)
[2020-11-23] MEDS ORDERED: fentaNYL (PF) 50 MCG/ML 2 ML AMP ONE (14:25)
[2020-11-23] MEDS ORDERED: GLYCOPYRROLATE 0.2 MG/ML 2 ML VIAL ONE (14:25)
[2020-11-23] MEDS ORDERED: PROPOFOL 10 MG/ML 20 ML VIAL IV ONE (14:25)
[2020-11-23] MEDS ORDERED: SODIUM CHLORIDE 0.9% 100 ML BAG ONE (14:25)
[2020-11-23] MEDS ORDERED: PHENYLEPHRINE-0.9% NACL SYG 1,000 MCG/10 ML SYRINGE ONE (14:25)
[2020-11-23] MEDS ORDERED: HYDROmorphone (PF) 1 MG/ML ONE (14:25)
[2020-11-23] MEDS ORDERED: LIDOCAINE 1% INJ 10MG/ML (20 ML MDV) ONE (14:25)
--- NOTE | 2020-11-23 14:32 | P.ANPRN ---
Procedure Note - Anesthesia - Nerve Block Performed Left Adductor Canal Infusion Time Out Performed: Yes (1344) Date of Procedure: 11/23/20 Procedure Start Time: 13:45 Procedure Stop Time: 13:50 Location of Patient: PreOp Indication: Acute Post-Operative Pain, Requested by Surgeon Specifically requested for management of pain by DrMaria Antonia: Umesh Zarate Sedation Type: Sedate with meaningful contact maintained Preparation: Sterile Prep Position: Supine Catheter Depth at Skin (cm): 10 Catheter: Indwelling Needle Types: Pajunk Needle Gauge: 21 Ultrasound used to visualize needle placement: Yes Ultrasound used to observe medication spread: Yes Injectate: 0.5% Ropivacaine (see comment for volume) (15cc) Blood Aspirated: No Pain Paresthesia on Injection Noted: No Resistance on Injection: Normal Image Stored and Saved: Yes Events: Uneventful and Well Tolerated
--- NOTE | 2020-11-23 14:33 | P.ANPRN ---
Procedure Note - Anesthesia - Nerve Block Performed Left iPack Single Time Out Performed: Yes (1344) Date of Procedure: 11/23/20 Procedure Start Time: 13:50 Procedure Stop Time: 13:55 Location of Patient: PreOp Indication: Acute Post-Operative Pain, Requested by Surgeon Specifically requested for management of pain by DrMaria Antonia: Umesh Zarate Sedation Type: Sedate with meaningful contact maintained Preparation: Sterile Prep Position: Supine Catheter: None Needle Types: Pajunk Needle Gauge: 21 Ultrasound used to visualize needle placement: Yes Ultrasound used to observe medication spread: Yes Injectate: 0.5% Ropivacaine (see comment for volume) (15cc) Blood Aspirated: No Pain Paresthesia on Injection Noted: No Resistance on Injection: Normal Image Stored and Saved: Yes Events: Uneventful and Well Tolerated
--- NOTE | 2020-11-23 15:47 | P.OP ---
Date of Procedure: 11/23/20 Preoperative Diagnosis: Unstable left total knee arthroplasty Postoperative Diagnosis: Same Procedure(s) Performed: Polyethylene revision left total knee arthroplasty Implants: [employer] size 5 fixed bearing cruciate retaining 10 mm polyethylene tibial insert Anesthesia: GETA, regional (Adductor canal catheter) Surgeon: Umesh Zarate Boilers Inspector #1: Adriano Fernández Estimated Blood Loss (ml): 11 Pathology: none sent Condition: stable Disposition: PACU Indications for Procedure: 62-year-old patient seen with unstable/painful left total knee arthroplasty. I discussed revision with probable revision of the polyethylene component versus complete revision. She was agreeable and consent was obtained. Operative Findings: see description of procedure Description of Procedure: Patient was taken to the operative suite. The patient received preoperative IV antibiotics. She underwent a general anesthetic by the department of anesthesia. A well-padded tourniquet placed proximal left lower extremity. The left lower extremity prepped and draped in the normal sterile orthopedic fashion. The extremity was elevated and tourniquet was insufflated to 300. I now checked the knee under anesthesia. It was a +1/2 MCL and LCL along with a +1/2 anterior posterior drawer sign. The knee was quite unstable. I made an incision over the previous cicatrix sharply through skin. I dissected down to the extensor mechanism. I performed a medial arthrotomy. There was minimal synovial fluid. The patella was everted and knee was flexed. I now removed the polyethylene tibial tray. I now checked the femoral tibial components and they were well seated and stable. There was no abnormality there. I now trialed a 8 mm polyethylene component and knee was still unstable. I went to a 10. At that point the knee felt very stable in flexion-extension as well as medial lateral collateral ligaments. I now removed the trial 10 mm polyethylene tibial insert. I now irrigated the wound copiously. There was good hemostasis. I now placed a size 5 fixed bearing cruciate retaining 10 mm-tibial insert. Excellent position and was secured. I took the knee through range of motion was stable. Intraoperatively the knee was very stable. The wound was again irrigated. The tourniquet was released. I achieved additional hemostasis field for cautery. I repaired the extensor mechanism with Ethibond. The repair was stable. The subcutaneous soft tissues were repaired in layers with Vicryl suture. The skin was repaired with a running subcuticular suture augmented with skin glue. Sterile dressings were applied. The patient was awakened and transferred to recovery stable condition. Jj BOURGEOIS assisted with the procedure.
[2020-11-23 16:12] VITALS: TEMP 96.8
[2020-11-23] MEDS ORDERED: ROPIVACAINE 0.2%-NS ON-Q PUMP 2 MG/ML EACH MISCELLANE ONE (16:28)
[2020-11-23 16:43] VITALS: RESP 16
[2020-11-23] MEDS ORDERED: LACTATED RINGERS 1,000 ML IV ONE ×2 (16:45)
[2020-11-23] MEDS ORDERED: HYDROcodone/APAP 5-325MG 1 EACH TAB PO ONE (17:20)
[2020-11-23] MEDS ORDERED: HYDROcodone/APAP 5-325MG 1 EACH TAB ONE (17:26)
[2020-11-23 17:50] VITALS: BP 125/85; PULSE 74
== END 2020-11-23 18:25 | disposition home or self-care (01) | DRG 489 ==
LOC: EDSTATUS 13:00 → 2ORMAIN 11-23 12:49
PROVIDERS: ADMIT Orthopaedic Surgery; ATTEND Orthopaedic Surgery
PROC: 0SPD09Z Removal of Liner from Left Knee Joint, Open Approach (ICD-10-PCS; 2020-11-23)
PROC: 0SUW09Z Supplement Left Knee Joint, Tibial Surface with Liner, Open Approach (ICD-10-PCS; principal; 2020-11-23 15:25)
DX: T84.023A Instability of internal left knee prosthesis, initial encounter (principal); T84.84XA Pain due to internal orthopedic prosthetic devices, implants and grafts, initial encounter; Y83.1 Surgical operation with implant of artificial internal device as the cause of abnormal reaction of the patient, or of later complication, without mention of misadventure at the time of the procedure; E03.9 Hypothyroidism, unspecified
CPT/HCPCS: 64448; 64999; 76942

== ENCOUNTER → 2022-01-14 | Outpatient (CLI) | payer MEDICARE ==
--- NOTE | 2022-01-18 08:21 | MM ---
Reason for Exam: Screening (asymptomatic). Last mammogram was performed 2 year(s) and 8 month(s) ago. Patient History: Menarche at age 15. First Full-Term at age 20. Postmenopausal. Paternal grandmother had breast cancer, age 65. Risk Values: Marine 5 year model risk: 1.2%. NCI Lifetime model risk: 3.9%. Film Views: Bilateral CC views were taken. Bilateral MLO views were taken. Prior Study Comparison: 05/30/2013 Bilateral Screening Mammogram, [facility]. 01/26/2018 Bilateral Screening Mammogram, [facility]. 05/08/2019 Bilateral Screening Mammogram, [facility]. Tissue Density: The breast tissue is heterogeneously dense. This may lower the sensitivity of mammography. Findings: Analyzed By CAD. There is no suspicious group of microcalcifications or new suspicious mass in either breast. Overall Assessment: Negative, BI-RAD 1 Management: Screening Mammogram of both breasts in 1 year. A clinical breast exam by your physician is recommended on an annual basis and results should be correlated with mammographic findings. Electronically signed and approved by: Richar Herman M.D.
== END | disposition home or self-care (01) ==
LOC: RADMAMWWP 16:14
PROVIDERS: ATTEND Family Medicine
DX: Z12.31 Encounter for screening mammogram for malignant neoplasm of breast (principal); Z78.0 Asymptomatic menopausal state
CPT/HCPCS: 77063; 77067

== ENCOUNTER → 2022-11-09 | Outpatient (CLI) | payer MEDICARE ==
--- NOTE | 2022-11-09 12:30 | XR ---
EXAMINATION TYPE: XR chest 2V DATE OF EXAM: 11/09/2022 COMPARISON: NONE TECHNIQUE: PA and lateral views submitted. HISTORY: Shortness of breath FINDINGS: The lungs are clear and there is no pneumothorax, pleural effusion, or focal pneumonia. Heart size normal and no overt failure. Osseous structures demonstrate hypertrophic and degenerative changes of the spine. Hyperinflation. Surgical clips in the abdomen. IMPRESSION: 1. No acute process. Correlate for COPD.
== END | disposition home or self-care (01) ==
LOC: RADXRMAIN 12:11
PROVIDERS: ATTEND Allergy & Immunology
DX: J45.41 Moderate persistent asthma with (acute) exacerbation (principal); J20.9 Acute bronchitis, unspecified; J18.9 Pneumonia, unspecified organism
CPT/HCPCS: 71046

== ENCOUNTER → 2022-11-09 | Outpatient (CLI) | payer MEDICARE ==
[2022-11-09 18:09] LABS: Basophils # (A) 0.05 X 10*3/uL (0.00-0.10); Basophils % (A) 0.6 %; Eosinophils # (A) 0.18 X 10*3/uL (0.04-0.35); Eosinophils % (A) 2.2 %; HGB 12.1 g/dL (12.0-15.0); Immature Grans, Automated 0.4 %; Lymphocytes # (A) 2.07 X 10*3/uL (0.90-5.00); Lymphocytes % (A) 25.4 %; MCH 31.3 pg (27.0-32.0); MCHC 31.8 g/dL (32.0-37.0); MCV 98.4 fL (80.0-97.0); Mean Platelet Volume 9.8 fL (9.5-12.2); Monocytes # (A) 0.54 X 10*3/uL (0.20-1.00); Monocytes % (A) 6.6 %; NRBC Per 100 WBC 0 /100 WBCS (0.0-0.0); Neutrophils # (A) 5.29 X 10*3/uL (1.80-7.70); Neutrophils % (A) 64.8 %; Platelet Count 282 X 10*3/uL (140-440); RBC 3.86 X 10*6/uL (4.10-5.20); RDW 13.1 % (11.5-14.5); WBC 8.16 X 10*3/uL (4.50-10.00)
[2022-11-09 18:20] LABS: Erythrocyte Sedimentation Rate 26 mm/Hr (0-30)
[2022-11-09 18:28] LABS: Immunoglobulin E 26.2 IU/mL (0.00-114.00)
[2022-11-10 14:16] LABS: IgG Subclass 1 560.6 mg/dL (382.40-928.60); IgG Subclass 2 267.1 mg/dL (241.80-700.30); IgG Subclass 3 59.3 mg/dL (21.82-176.00)
[2022-11-10 14:46] LABS: C-ANCA <1:20 Titer (<1:20)
[2022-11-10 14:49] LABS: IgG Subclass 4 4.2 mg/dL (3.92-86.40)
== END | disposition home or self-care (01) ==
LOC: LABWHC1 12:25
PROVIDERS: ATTEND Allergy & Immunology
DX: J20.9 Acute bronchitis, unspecified (principal); J18.9 Pneumonia, unspecified organism; J45.41 Moderate persistent asthma with (acute) exacerbation
CPT/HCPCS: 36415; 82784; 82785; 82787; 83516; 85025; 85652; 86255

== ENCOUNTER → 2024-06-20 | Outpatient (CLI) | payer MEDICARE ==
--- NOTE | 2024-06-21 11:45 | MM ---
Reason for Exam: Screening (asymptomatic). Last mammogram was performed 2 year(s) and 5 month(s) ago. Patient History: Menarche at age 15. First Full-Term at age 20. Postmenopausal. Patient has history of breast feeding. Paternal grandmother had breast cancer, age 65. Risk Values: Marine 5 year model risk: 1.3%. NCI Lifetime model risk: 3.5%. Prior Study Comparison: 01/26/2018 Bilateral Screening Mammogram, [facility]. 05/08/2019 Bilateral Screening Mammogram, [facility]. 01/14/2022 Bilateral MG 3D screening mammo w/cad, [facility]. Tissue Density: There are scattered areas of fibroglandular density. Findings: Analyzed By CAD. Right breast: No abnormality in area of concern marker. There is no suspicious group of microcalcifications or new suspicious mass. Left breast: There is no suspicious group of microcalcifications or new suspicious mass. Overall Assessment: Negative, BI-RAD 1 Management: Diagnostic Breast Ultrasound of the right breast. Ultrasound interrogation of concern to rule out underlying pathology. [facility] will attempt to contact patient to return for supplemental views and ultrasound if indicated. Patient should continue monthly self-breast exams. A clinical breast exam by your physician is recommended on an annual basis. This exam should not preclude additional follow-up of suspicious palpable abnormalities. Note on Marine scores and lifetime risk: 1. A Marine score greater than 3% is considered moderate risk. If this is the case, consider specialist referral to assess eligibility for a risk reducing agent. 2. If overall lifetime risk for the development of breast cancer is 20% or higher, the patient may qualify for future screening with alternating mammogram and breast MRI. [facility], , 06/21/2024 11:40 AM. Electronically signed and approved by: Addy Alejandro DO
== END | disposition home or self-care (01) ==
LOC: RADMAMWWP 15:45
PROVIDERS: ATTEND Family Medicine
DX: Z12.31 Encounter for screening mammogram for malignant neoplasm of breast (principal); R92.323 Mammographic fibroglandular density, bilateral breasts; Z78.0 Asymptomatic menopausal state; Z80.3 Family history of malignant neoplasm of breast
CPT/HCPCS: 77063; 77067

== ENCOUNTER → 2024-06-25 | Outpatient (CLI) | payer MEDICARE ==
--- NOTE | 2024-06-25 10:17 | USB ---
Patient History: Menarche at age 15. First Full-Term at age 20. Postmenopausal. Patient has history of breast feeding. Paternal grandmother had breast cancer, age 65. Risk Values: Marine 5 year model risk: 1.3%. NCI Lifetime model risk: 3.5%. Technique: Method: Targeted. Doppler: Color. Patient Position: LPO. Prior Study Comparison: 05/08/2019 Bilateral Screening Mammogram, [facility]. 01/14/2022 Bilateral MG 3D screening mammo w/cad, [facility]. 06/20/2024 Bilateral MG 3D screening mammo w/cad, [facility]. Findings: The upper outer quadrant of the right breast, the axilla of the right breast and the retroareolar of the right breast were scanned. No solid or cystic masses are identified.. Overall Assessment: Negative, BI-RAD 1 Management: Screening Mammogram of both breasts in 1 year. A clinical breast exam by your physician is recommended on an annual basis and results should be correlated with mammographic findings. This exam should not preclude additional follow-up of suspicious palpable abnormalities. Results were given to the patient verbally at the time of exam. [facility], , 06/25/2024 10:14 AM. Electronically signed and approved by: Catrachito Trevino D.O. Radiologis
== END | disposition home or self-care (01) ==
LOC: RADUSWWP 09:53
PROVIDERS: ATTEND Family Medicine
DX: R92.8 Other abnormal and inconclusive findings on diagnostic imaging of breast (principal); Z78.0 Asymptomatic menopausal state; Z80.3 Family history of malignant neoplasm of breast